=== PATIENT | female | born 1955 | race Two or more races ===

== ENCOUNTER 2019-01-12 10:37 | Inpatient (IN) | payer MEDICAID, OTHER ==
[~2019-01-12] VITALS: Ht 162.6 cm; Wt 81.1 kg
[2019-01-12 11:49] LABS: Basophils # (auto) 0 uL; Basophils % (auto) 0.7 % (0.0-2.0); Eosinophils # (auto) 0.2 uL; Eosinophils % (auto) 3.9 % (0.0-7.0); Hematocrit 29.7 % (36.0-46.0); Hemoglobin 9.9 g/dL (12.2-16.2); Lymphocytes # (auto) 0.9 uL; Lymphocytes % (auto) 20.5 % (10.0-50.0); Mean Corpuscular Hemoglobin 29.8 pg (28.0-32.0); Mean Corpuscular Hgb Conc. 33.3 g/dL (32.0-36.0); Mean Corpuscular Volume 89.7 fL (80.0-100.0); Monocytes # (auto) 0.3 uL; Monocytes % (auto) 7.8 % (0.0-12.0); Neutrophils % (auto) 67.1 % (37.0-80.0); Platelet Count (auto) 149 10^3/uL (140-450); Red Blood Cells 3.32 10^6/uL (4.0-5.20); White Blood Cell 4.5 10^3/uL (4.4-10.8)
[2019-01-12 12:21] LABS: Alanine Aminotransferase 79 U/L (13-56); Albumin 3.4 g/dL (3.4-5.0); Alkaline Phosphatase 241 U/L (45-117); Anion Gap 9 (5-15); Aspartate Aminotransferase 49 U/L (15-37); Bilirubin, Total 0.3 mg/dL (0.2-1.0); Blood Urea Nitrogen 74 mg/dL (7-18); Calcium 8.6 mg/dL (8.5-10.1); Carbon Dioxide 20 mmol/L (21-32); Chloride 108 mmol/L (98-107); GFR African American 14 mL/min; GFR Non-African American 12 mL/min; Glucose 243 mg/dL (74-106); Potassium 4.8 mmol/L (3.5-5.1); Sodium 137 mmol/L (136-145); Total Protein 7.2 g/dL (6.4-8.2)
[2019-01-12] MEDS ORDERED: TIMO0.5S67 EACHEYE (12:58)
[2019-01-12] MEDS ORDERED: CARV12.544 PO (12:58)
[2019-01-12] MEDS ORDERED: DORZ2SOL17 OP (12:58)
[2019-01-12] MEDS ORDERED: ASPI-404 PO (12:58)
[2019-01-12] MEDS ORDERED: ATOR20TA50 PO (12:58)
[2019-01-12] MEDS ORDERED: LACTULOSE 20Gm/30ML SOLN PO PRN (14:45)
[2019-01-12] MEDS ORDERED: traMADol HCL 50 MG TAB PO PRN (14:45)
[2019-01-12] MEDS ORDERED: TEMAZEPAM 15 MG CAP PO PRN (14:45)
[2019-01-12] MEDS ORDERED: PROMETHAZINE HCL 25 MG/ML 1ML IV PRN (14:45)
[2019-01-12] MEDS ORDERED: ACETAMINOPHEN 500 MG TAB PO PRN (14:45)
[2019-01-12] MEDS ORDERED: DEXTROSE (50%) 50ML SYRG IV PRN (14:45)
[2019-01-12] MEDS ORDERED: MORPHINE SULF INJ 2 MG/ML SYRINGE 1ML IV PRN (14:45)
[2019-01-12] MEDS ORDERED: NITROGLYCERIN 0.4 MG SL TAB SL PRN (14:45)
[2019-01-12 14:54] LABS: Urine Bacteria FEW /hpf (None Seen); Urine Blood Negative /uL (Negative); Urine Hyaline Cast FEW /lpf (0 - 2); Urine Specific Gravity 1.008 (1.001-1.035); Urine WBC 25 /hpf (0 - 5)
[2019-01-12] MEDS ORDERED: ENOXAPARIN SOD 100 MG/1 ML SYRINGE SC ONE (15:24)
[2019-01-12] MEDS ORDERED: ENOXAPARIN SOD 80 MG/0.8ML SYRINGE SC ONE (15:30)
[2019-01-12] MEDS ORDERED: cefTRIAXone 1GM/50ML D5W 50 ML IV ONE ×2 (15:30→15:49)
[2019-01-12 16:50] VITALS: BP 166/83
--- NOTE | 2019-01-12 16:50 | NUR ---
RECEIVED PATIENT FROM THE ER BY THE [facility], A/O TIMES 4, O2 BY R/A, STATES SHE CAN USE THE BEDPAN, REFUSES THE KHALIL, STATES SHE IS BLIND, SALINE LOCK 20G TO THE LEFT HAND, DENIES PAIN AND SOB AT THIS TIME, VS [id number] 97%,
[2019-01-12] MEDS: InsuLIN REG 1unit/0.01ml Soln (100units/ml) SC SCH ×2 (17:00→22:00)
[2019-01-12] MEDS: ACCU-CHEK COMFORT CURVE STRIP VI SCH ×2 (17:00→22:00)
--- NOTE | 2019-01-12 17:37 | NUR ---
BS 122 NO INSULIN NEEDED, SITTING UP IN BED WITH EYES CLOSED FAMILY AT THE BEDSIDE, INSTRUCTED ON THE P&P OF THE [facility] VERBALIZED UNDERSTANDING
[2019-01-12] MEDS: GENTAMICIN OPTH sol 0.3% 5ml LEFTEYE SCH ×2 (18:00→22:00)
--- NOTE | 2019-01-12 18:30 | NUR ---
PATIENT BEING FEED HER DINNER, BY THE FAMILY AT THIS TIME, O2 BY R/A, NO CHANGE SINCE COMING TO THE UNIT, WILL CONTINUE TO MONITOR AND GIVE REPORT TO THE NEXT SHIFT
[2019-01-12] MEDS: LABETALOL HCL 5 MG/ML ML 20ML VIAL IV PRN (18:43)
--- NOTE | 2019-01-12 18:43 | NUR ---
MEDICATED WITH LABETALOL FOR B/P OF /, TROP BEING DRAWN
--- NOTE | 2019-01-12 19:09 | NUR ---
B/P 157/79, DENIES PAIN
[2019-01-12 20:00] VITALS: BP 155/85
[2019-01-12] MEDS: DORZOLAMIDE HCL 2% OPTH(EYE) SOL 10ML OP SCH (22:00)
[2019-01-12] MEDS: CARVEDILOL 12.5 MG TAB PO SCH (23:38)
[2019-01-13] VITALS: BP 143/77
[2019-01-13] MEDS: GENTAMICIN OPTH sol 0.3% 5ml LEFTEYE SCH ×6 (02:00→23:00)
[2019-01-13 04:00] VITALS: BP 147/87
[2019-01-13 06:21] LABS: Albumin 3.3 g/dL (3.4-5.0); BUN/Creatinine Ratio 19.3; Bilirubin, Total 0.3 mg/dL (0.2-1.0); Calcium 8.6 mg/dL (8.5-10.1); Potassium 4.3 mmol/L (3.5-5.1); Total Protein 6.7 g/dL (6.4-8.2)
[2019-01-13] MEDS: ACCU-CHEK COMFORT CURVE STRIP VI SCH ×4 (06:31→22:00)
[2019-01-13] MEDS: InsuLIN REG 1unit/0.01ml Soln (100units/ml) SC SCH ×4 (06:31→23:01)
--- NOTE | 2019-01-13 07:00 | NUR ---
Pt has remained stable this shift. Daughter has come in a few times to check on her mother. At 0530 daughter bathed mother and did her morning care for comfort of her mother instead of staff. Report given, care endorsed.
--- NOTE | 2019-01-13 07:30 | NUR ---
RECEIVED PATIENT SITTING UP IN THE BED, PATIENT IS BLIND BUT A/O TIMES 4, WHEN I CALLED HE NAME, SALINE LOCK TO THE LEFT HAND FLUSHED AND PATENT, ABLE TO GET UP TO THE BSC WITH MINIMAL HELP HE SAYS, O2 BY R/A, DENIES PAIN
[2019-01-13 08:00] VITALS: BP 163/93
[2019-01-13] MEDS: TIMOLOL MAL 0.5% OPTH(EYE) SOL 5ML EACHEYE SCH (08:04)
--- NOTE | 2019-01-13 08:30 | NUR ---
SITTING UP IN BED EATING HER BREAKFAST, NO COMPLAINTS
[2019-01-13] MEDS: cefTRIAXone 1GM/50ML D5W 50 ML IV SCH (08:49)
--- NOTE | 2019-01-13 09:00 | NUR ---
NO COMPLAINTS OF PAIN, SITTING UP IN THE BED,
[2019-01-13] MEDS ORDERED: ASPirin 81 mg TAB PO SCH (10:00)
[2019-01-13] MEDS ORDERED: ENOXAPARIN SOD 30 MG/0.3 ML SYRINGE SC SCH (10:00)
[2019-01-13] MEDS ORDERED: FUROSEMIDE 40 MG/4 ML VIAL IV SCH (10:00)
--- NOTE | 2019-01-13 10:00 | NUR ---
EXPLAIN MEDICATIONS TO THE PATIENT AND THE DAUGHTER REGARDING THE DOSAGE, USAGE AND THE SIDE EFFECTS, VERBALIZED THE THEY UNDERSTOOD AND MEDS GIVEN ORDERED
[2019-01-13] MEDS: PANTOPRAZOLE 40 MG TAB PO SCH (10:07)
[2019-01-13] MEDS: ASPirin-EC 81 mg tab PO SCH (10:07)
[2019-01-13] MEDS: ATORVASTATIN 20 MG TAB PO SCH (10:07)
[2019-01-13] MEDS: ENOXAPARIN SOD 30 MG/0.3 ML SYRINGE SC SCH (10:08)
[2019-01-13] MEDS: CARVEDILOL 12.5 MG TAB PO SCH ×3 (10:09→23:05)
[2019-01-13] MEDS: DORZOLAMIDE HCL 2% OPTH(EYE) SOL 10ML OP SCH ×2 (10:18→23:00)
--- NOTE | 2019-01-13 11:30 | NUR ---
PATIENT SITTING UP IN THE BED WITH HER EYES CLOSED AND COVERS OVER HER HEAD STATES SHE IS DOING OKAY
[2019-01-13] MEDS: LABETALOL HCL 5 MG/ML ML 20ML VIAL IV PRN (12:23)
--- NOTE | 2019-01-13 12:30 | NUR ---
PATIENT ATE ONLY 50% OF HIS LUNCH
--- NOTE | 2019-01-13 13:45 | NUR ---
PATIENT GETS UP TO THE BSC WITH MINIMAL HELP
--- NOTE | 2019-01-13 14:45 | NUR ---
DR RANGEL INTO SEE THE PATIENT AND STATED TO TRANSFER TO TELE
[2019-01-13] MEDS ORDERED: traMADol HCL 50 MG TAB PO PRN (15:15)
--- NOTE | 2019-01-13 15:15 | NUR ---
CAROTID BEING DONE
--- NOTE | 2019-01-13 15:39 | NUR ---
JAKOB FROM RADIOLOGY HERE TO TALK TO THE PATIENT ABOUT HAVING AN MRI OF THE BRAIN, BUT THE PATIENT HAS A PACEMAKER AND THE FAMILY NEEDS TO BRING IN HER CARD TO SEE IF IT IS CAPABLE
--- NOTE | 2019-01-13 16:00 | NUR ---
ECHO BEING DONE
--- NOTE | 2019-01-13 17:00 | NUR ---
NO CHANGE IN CONDITION , FAMILY AT THE BED SIDE AND PATIENT EYES CLOSED BUT LISTENING TO THE TV
--- NOTE | 2019-01-13 18:00 | NUR ---
PATIENT SITTING UP IN BED, TALKING TO THE FAMILY , NO COMPLAINTS OF PAIN
--- NOTE | 2019-01-13 18:30 | NUR ---
SITTING UP IN THE BED, ATE ONLY A SMALL AMOUNT OF DINNER, STATES SHE IS HOT AND THE TEMP WAS DECREASED IN THE ROOM, CHECKED TEMP 99, FAMILY AT THE BEDSIDE, SALINE LOCK TO THE LEFT HAND 20G FLUSHED AND PATENT, GETS UP AND USES THE BSC, NO COMPLAINTS OF PAIN WHEN ASK, O2 BY R/A, A/O TIMES 4, WILL CONTINUE TO MONITOR AND GIVE REPORT TO THE NEXT SHIFT
[2019-01-13 20:00] VITALS: BP 110/64
[2019-01-13] MEDS ORDERED: NIFEdipine ER 30 MG TAB PO SCH (22:00)
[2019-01-14] VITALS: BP 175/100
[2019-01-14] MEDS: GENTAMICIN OPTH sol 0.3% 5ml LEFTEYE SCH ×4 (02:00→14:00)
[2019-01-14 04:18] VITALS: BP 96/54
[2019-01-14] MEDS: TIMOLOL MAL 0.5% OPTH(EYE) SOL 5ML EACHEYE SCH (06:30)
[2019-01-14] MEDS: InsuLIN REG 1unit/0.01ml Soln (100units/ml) SC SCH ×2 (06:30→12:04)
--- NOTE | 2019-01-14 06:30 | NUR ---
Received pt to room 245A via w/c with two [facility] personnel accompanying. A&Ox4. Skin wm and dry with normal coloring. Pt denies pain. Sitting straight up in bed with grown dtr sitting on foot of bed. Bed in lowest position; locked. Eye meds placed in pt's med. cassette for pyxis. Will endorse to day shift RN.
[2019-01-14] MEDS: ACCU-CHEK COMFORT CURVE STRIP VI SCH ×2 (06:31→11:30)
--- NOTE | 2019-01-14 06:34 | NUR ---
Pt stable transferred out to [address] Wheelchair with [facility]. No S/S of distress. Daughter with her for transfer. Report given to Monae TSAI, care endorsed.
[2019-01-14 07:03] LABS: Anion Gap 10 (5-15); BUN/Creatinine Ratio 18.1; Blood Urea Nitrogen 69 mg/dL (7-18); Carbon Dioxide 21 mmol/L (21-32); Chloride 111 mmol/L (98-107); GFR African American 15 mL/min; GFR Non-African American 13 mL/min; Glucose 125 mg/dL (74-106); Potassium 4.6 mmol/L (3.5-5.1); Sodium 142 mmol/L (136-145)
[2019-01-14 07:04] LABS: Calcium 8.7 mg/dL (8.5-10.1)
--- NOTE | 2019-01-14 07:16 | NUR ---
Opening Shift Note: Assumed care of patient, awake and alert. No S/S of distress/SOB or pain. Family at bedside. Bed in lowest locked position, side rails up x 2, call light within reach. Patient instructed on POC and to call for assist PRN, will continue to monitor for changes Q1hr and PRN.
[2019-01-14] MEDS: cefTRIAXone 1GM/50ML D5W 50 ML IV SCH (09:22)
[2019-01-14 09:24] VITALS: BP 99/52
[2019-01-14] MEDS: PANTOPRAZOLE 40 MG TAB PO SCH (09:52)
[2019-01-14] MEDS: ASPirin-EC 81 mg tab PO SCH (09:52)
[2019-01-14] MEDS: ATORVASTATIN 20 MG TAB PO SCH (09:52)
[2019-01-14] MEDS: DORZOLAMIDE HCL 2% OPTH(EYE) SOL 10ML OP SCH (09:53)
[2019-01-14] MEDS: ENOXAPARIN SOD 30 MG/0.3 ML SYRINGE SC SCH (09:54)
[2019-01-14] MEDS: CARVEDILOL 12.5 MG TAB PO SCH (10:00)
--- NOTE | 2019-01-14 11:27 | NUR ---
Dr. Garcia at bedside. Discussed with patient and family the POC. Patient verbally agrees. Will continue to monitor.
--- NOTE | 2019-01-14 11:47 | NUR ---
Dr. Garcia paged. New medications ordered for discharge.
[2019-01-14] MEDS ORDERED: NIFEdipine ER 30 MG TAB PO SCH (12:00)
[2019-01-14 12:53] VITALS: BP 111/60
--- NOTE | 2019-01-14 13:59 | NUR ---
Family at bedside. Concerned about pending discharge at patient not being "100% her normal self." Family educated on doctors discharge order. Dr Jose sanchez.
--- NOTE | 2019-01-14 14:35 | NUR ---
Dr. Garcia called back. New orders placed.
--- NOTE | 2019-01-14 15:10 | NUR ---
Patient off unit.
--- NOTE | 2019-01-14 15:45 | NUR ---
Radiologist called. Report from CT available.
--- NOTE | 2019-01-14 15:59 | NUR ---
Family made aware of Dr. Garcia orders for discharge. Family still refusing discharge at this time.
--- NOTE | 2019-01-14 16:15 | NUR ---
Dr. Garcia called back. Patient is still stable for discharge.
[2019-01-14 16:37] VITALS: BP 144/82
[2019-01-14 16:42] VITALS: BP 118/65
--- NOTE | 2019-01-14 16:45 | NUR ---
Patient and family agree to discharge.
--- NOTE | 2019-01-14 17:16 | NUR ---
IV removal: IV DC'd with clean sterile technique, catheter fully intact. Pressure dressing applied to site. Patient tolerated well.
== END 2019-01-14 19:18 | disposition home or self-care (01) | DRG 199 ==
LOC: ER 10:41 → TELE 10:42 → DOU IN ICU 16:53 → TELE-EAST 01-14 06:37
PROVIDERS: ADMIT Internal Medicine; ATTEND Internal Medicine
DX: I16.0 Hypertensive urgency (principal); E11.21 Type 2 diabetes mellitus with diabetic nephropathy; E11.40 Type 2 diabetes mellitus with diabetic neuropathy, unspecified; N39.0 Urinary tract infection, site not specified; I13.2 Hypertensive heart and chronic kidney disease with heart failure and with stage 5 chronic kidney disease, or end stage renal disease; E11.319 Type 2 diabetes mellitus with unspecified diabetic retinopathy without macular edema; E11.22 Type 2 diabetes mellitus with diabetic chronic kidney disease; I25.10 Atherosclerotic heart disease of native coronary artery without angina pectoris; D64.9 Anemia, unspecified; E78.5 Hyperlipidemia, unspecified; H10.9 Unspecified conjunctivitis; R56.9 Unspecified convulsions; H54.8 Legal blindness, as defined in USA; G47.00 Insomnia, unspecified; N18.6 End stage renal disease; E11.65 Type 2 diabetes mellitus with hyperglycemia; I50.9 Heart failure, unspecified; Z95.1 Presence of aortocoronary bypass graft; Z95.0 Presence of cardiac pacemaker; Z83.3 Family history of diabetes mellitus; Z79.899 Other long term (current) drug therapy; I50.42 Chronic combined systolic (congestive) and diastolic (congestive) heart failure
CPT/HCPCS: 36415; 70450; 71046; 80048; 80053; 81001; 82550; 82962; 83036; 83735; 83880; 84484; 85025; 87086; 87088; 87186; 93005; 93306; 93886; 96365; 96372; G0378; J0696; J1815

== ENCOUNTER 2021-02-08 04:57 | Inpatient (IN) | payer MEDICAID ==
[~2021-02-08] VITALS: Ht 162.6 cm; Wt 81.8 kg
[~2021-02-08 04:57] MED LIST: ASPI-543 PO; ATOR20TA50 PO; CARV12.544 PO; DORZ2SOL17 EACHEYE; TIMO0.5S28 EACHEYE
[2021-02-08 07:35] LABS: Basophils # (auto) 0 10 ^3/uL (0-0.2); Eosinophils # (auto) 0 10 ^3/uL (0-0.8); Eosinophils % (auto) 0.9 % (0.0-7.0); Lymphocytes # (auto) 0.6 10 ^3/uL (0.4-5.4); Monocytes # (auto) 0.5 10 ^3/uL (0-1.3)
[2021-02-08 07:37] LABS: Basophils % (auto) 0.5 % (0.0-2.0); Hematocrit 22.3 % (36.0-46.0); Hemoglobin 7.3 g/dL (12.2-16.2); Lymphocytes % (auto) 11.5 % (10.0-50.0); Mean Corpuscular Hemoglobin 30.9 pg (28.0-32.0); Mean Corpuscular Hgb Conc. 32.6 g/dL (32.0-36.0); Mean Corpuscular Volume 94.9 fL (80.0-100.0); Monocytes % (auto) 10.2 % (0.0-12.0); Neutrophils # (auto) 3.9 10 ^3/uL (1.6-8.6); Neutrophils % (auto) 76.9 % (37.0-80.0); Nucleated Red Blood Cells % 0.1 %; Red Blood Cells 2.35 10^6/uL (4.0-5.20); Red Cell Distribution Width 17.9 % (11.8-14.3)
[2021-02-08 07:43] LABS: Albumin 3.1 g/dL (3.4-5.0); Calcium 7.6 mg/dL (8.5-10.1)
[2021-02-08 07:48] LABS: BUN/Creatinine Ratio 7.9; Bilirubin, Total 0.5 mg/dL (0.2-1.0); Total Protein 7.6 g/dL (6.4-8.2)
[2021-02-08] MEDS ORDERED: SODIUM BICARBONATE 8.4 % INJ 50ML VIAL IV ONE ×2 (09:15→13:00)
[2021-02-08] MEDS ORDERED: D5W 5% 250 ML IV ONE (09:15)
[2021-02-08] MEDS ORDERED: InsuLIN REG 1unit/0.01ml Soln (100units/ml) IV ONE (09:15)
[2021-02-08] MEDS ORDERED: SODIUM CHLORIDE 0.9% 1,000 ML IV ONE ×2 (09:15→18:00)
[2021-02-08] MEDS ORDERED: CALCIUM CHL 100MG/ML 1,000 MG in D5W 5% 100 ML IV ONE (09:15)
[2021-02-08] MEDS ORDERED: SODIUM ZIRCONIUM CYCL 10 GM PAK PO ONE (12:15)
[2021-02-08] MEDS ORDERED: DOCUSATE SOD 100 MG CAP PO PRN (12:15)
[2021-02-08] MEDS ORDERED: MORPHINE SULFATE INJECTION 2 MG/ML SYRG IV PRN (12:15)
[2021-02-08] MEDS ORDERED: NITROGLYCERIN 0.4 MG SL TAB SL PRN (12:15)
[2021-02-08] MEDS ORDERED: ACETAMINOPHEN 325 MG TAB PO PRN (12:15)
[2021-02-08] MEDS ORDERED: ATORVASTATIN 20 MG TAB PO ONE (12:30)
[2021-02-08] MEDS ORDERED: DEXTROSE (50%) 50ML SYRG IV PRN (12:30)
[2021-02-08] MEDS ORDERED: ALBUTEROL SULF 2.5 MG/0.5ML(0.5%) NEB SOLN NEB ONE (13:00)
[2021-02-08] MEDS ORDERED: SODIUM BICARBONATE 50ML VIAL 150 ML in D5W 5% 1,000 ML IV ONE (13:00)
[2021-02-08] MEDS ORDERED: CALCIUM GLUC 1,000mg/50ml-NS 50 ML IV ONE (13:00)
[2021-02-08] MEDS: CARVEDILOL 3.125 MG TAB PO SCH ×2 (13:34→22:51)
[2021-02-08] MEDS: ASPirin 81 mg TAB PO SCH (13:35)
[2021-02-08] MEDS ORDERED: SODIUM BICARBONATE 8.4% INJ 50ML SYRINGE ONE (13:41)
[2021-02-08] MEDS ORDERED: FUROSEMIDE 100 MG/10ML VIAL IV ONE (13:45)
[2021-02-08 14:26] LABS: Urine Bacteria MANY /hpf (None Seen); Urine Blood 2+ /uL (Negative); Urine Specific Gravity 1.014 (1.001-1.035); Urine WBC 400 /hpf (0 - 5)
[2021-02-08 15:32] LABS: Cholesterol 118 mg/dL (< 200)
[2021-02-08 15:36] LABS: HDL Cholesterol 47 mg/dL (40-59); LDL Cholesterol 38 mg/dL (< 100); Triglycerides 128 mg/dL (< 150)
[2021-02-08] MEDS: SODIUM ZIRCONIUM CYCL 10 GM PAK PO SCH ×2 (16:00→22:51)
[2021-02-08 16:55] LABS: BUN/Creatinine Ratio 8.1; Calcium 8.3 mg/dL (8.5-10.1); Potassium 4.8 mmol/L (3.5-5.1)
[2021-02-08] MEDS: InsuLIN REG 1unit/0.01ml Soln (100units/ml) SC SCH ×2 (17:00→22:51)
[2021-02-08] MEDS: ACCU-CHEK COMFORT CURVE STRIP VI SCH ×2 (17:16→22:51)
[2021-02-08] MEDS: CALCIUM ACETATE 667 MG CAP PO SCH (18:29)
[2021-02-08] MEDS ORDERED: HEPARIN SODIUM (PORCINE) 5000 UNITS/ML 1ML VIAL IV SCH (22:00)
[2021-02-09] MEDS ORDERED: ONDANSETRON HCL 4 MG/2 ML VIAL IV PRN (01:45)
[2021-02-09] MEDS: SODIUM ZIRCONIUM CYCL 10 GM PAK PO SCH ×3 (06:45→21:31)
[2021-02-09] MEDS ORDERED: SODIUM CHL 0.9% 1000 ML BAG XX ONE (07:00)
[2021-02-09] MEDS: ACCU-CHEK COMFORT CURVE STRIP VI SCH ×4 (07:49→21:32)
[2021-02-09] MEDS: InsuLIN REG 1unit/0.01ml Soln (100units/ml) SC SCH ×4 (07:50→21:31)
[2021-02-09 08:12] LABS: Basophils # (auto) 0 10 ^3/uL (0-0.2); Eosinophils # (auto) 0 10 ^3/uL (0-0.8); Mean Corpuscular Volume 96.5 fL (80.0-100.0); Monocytes # (auto) 0.4 10 ^3/uL (0-1.3); White Blood Cell 3.7 10^3/uL (4.4-10.8)
[2021-02-09 08:14] LABS: Basophils % (auto) 0.5 % (0.0-2.0); Eosinophils % (auto) 0.8 % (0.0-7.0); Hematocrit 19.9 % (36.0-46.0); Lymphocytes # (auto) 0.5 10 ^3/uL (0.4-5.4); Lymphocytes % (auto) 12.7 % (10.0-50.0); Mean Corpuscular Hemoglobin 30.2 pg (28.0-32.0); Mean Corpuscular Hgb Conc. 31.3 g/dL (32.0-36.0); Monocytes % (auto) 10.6 % (0.0-12.0); Neutrophils # (auto) 2.8 10 ^3/uL (1.6-8.6); Neutrophils % (auto) 75.4 % (37.0-80.0); Nucleated Red Blood Cells % 0.9 %; Red Blood Cells 2.07 10^6/uL (4.0-5.20)
[2021-02-09 08:19] LABS: Hemoglobin 6.2 g/dL (12.2-16.2)
[2021-02-09 08:32] LABS: % Iron Saturation 104.5 % (15-50)
[2021-02-09 08:47] LABS: Potassium 5.1 mmol/L (3.5-5.1)
[2021-02-09 08:53] LABS: BUN/Creatinine Ratio 8.1; Calcium 7.6 mg/dL (8.5-10.1)
[2021-02-09] MEDS: CALCIUM ACETATE 667 MG CAP PO SCH ×3 (09:47→18:41)
[2021-02-09] MEDS: HYDROcodone-ACET 5/325MG TAB PO PRN ×2 (09:49→21:32)
[2021-02-09] MEDS: PANTOPRAZOLE 40 MG TAB PO SCH (10:43)
[2021-02-09] MEDS: ASPirin 81 mg TAB PO SCH (10:43)
[2021-02-09] MEDS: CARVEDILOL 3.125 MG TAB PO SCH ×2 (10:43→21:31)
[2021-02-09] MEDS: SODIUM BICARBONATE 50ML VIAL 50 ML in SOD CHL 0.45% 1,000 ML IV SCH (11:00)
[2021-02-09] MEDS: HEPARIN SODIUM (PORCINE) 5000 UNITS/ML 1ML VIAL SC SCH ×2 (11:00→21:33)
[2021-02-09 14:04] LABS: Hepatitis A Ab IgM Negative
[2021-02-09 14:16] LABS: Hepatitis B Core IgM Negative
[2021-02-09 14:22] LABS: Hepatitis C Antibody Negative (Negative)
[2021-02-09] MEDS ORDERED: CARV25TA55 PO (14:28)
[2021-02-09] MEDS ORDERED: PRED1SUS31 EACHEYE (14:39)
[2021-02-09] MEDS ORDERED: BRIM EACHEYE (14:39)
[2021-02-09] MEDS ORDERED: FURO40TA4 PO (14:43)
[2021-02-09 16:39] LABS: Basophils # (auto) 0 10 ^3/uL (0-0.2); Eosinophils # (auto) 0.1 10 ^3/uL (0-0.8); Hematocrit 24.1 % (36.0-46.0); Hemoglobin 7.9 g/dL (12.2-16.2); Lymphocytes # (auto) 0.5 10 ^3/uL (0.4-5.4); Monocytes # (auto) 0.5 10 ^3/uL (0-1.3); Monocytes % (auto) 9.1 % (0.0-12.0); Red Cell Distribution Width 16.1 % (11.8-14.3); White Blood Cell 5.1 10^3/uL (4.4-10.8)
[2021-02-09 16:41] LABS: Basophils % (auto) 0.3 % (0.0-2.0); Eosinophils % (auto) 1.3 % (0.0-7.0); Lymphocytes % (auto) 9.3 % (10.0-50.0); Mean Corpuscular Hemoglobin 30.3 pg (28.0-32.0); Mean Corpuscular Volume 91.8 fL (80.0-100.0); Neutrophils # (auto) 4.1 10 ^3/uL (1.6-8.6); Nucleated Red Blood Cells % 2.3 %; Red Blood Cells 2.63 10^6/uL (4.0-5.20)
[2021-02-09 16:57] LABS: Calcium 7.9 mg/dL (8.5-10.1); Potassium 3.9 mmol/L (3.5-5.1)
[2021-02-09 16:59] LABS: BUN/Creatinine Ratio 8.1
[2021-02-09 22:00] VITALS: BP 131/63
[2021-02-09] MEDS ORDERED: ATORVASTATIN 20 MG TAB PO SCH (22:00)
[2021-02-09 22:08] VITALS: BP 132/70
[2021-02-10] VITALS (9 sets, daily range): BP systolic 96–137; BP diastolic 52–69
[2021-02-10] MEDS: SODIUM ZIRCONIUM CYCL 10 GM PAK PO SCH (05:32)
[2021-02-10] MEDS: ACCU-CHEK COMFORT CURVE STRIP VI SCH ×4 (06:11→21:54)
[2021-02-10] MEDS: InsuLIN REG 1unit/0.01ml Soln (100units/ml) SC SCH ×4 (06:11→22:00)
[2021-02-10] MEDS: CALCIUM ACETATE 667 MG CAP PO SCH ×3 (08:00→18:56)
[2021-02-10 09:18] LABS: Basophils # (auto) 0 10 ^3/uL (0-0.2); Eosinophils # (auto) 0.1 10 ^3/uL (0-0.8); Eosinophils % (auto) 1.6 % (0.0-7.0); Lymphocytes # (auto) 0.6 10 ^3/uL (0.4-5.4); Monocytes # (auto) 0.8 10 ^3/uL (0-1.3); Neutrophils # (auto) 3.2 10 ^3/uL (1.6-8.6)
[2021-02-10 09:23] LABS: Basophils % (auto) 0.5 % (0.0-2.0); Hematocrit 23.2 % (36.0-46.0); Lymphocytes % (auto) 12.8 % (10.0-50.0); Mean Corpuscular Hemoglobin 31.1 pg (28.0-32.0); Mean Corpuscular Hgb Conc. 34.5 g/dL (32.0-36.0); Mean Corpuscular Volume 90.2 fL (80.0-100.0); Monocytes % (auto) 16.4 % (0.0-12.0); Neutrophils % (auto) 68.7 % (37.0-80.0); Nucleated Red Blood Cells % 2.4 %; Red Blood Cells 2.58 10^6/uL (4.0-5.20); Red Cell Distribution Width 16.8 % (11.8-14.3); White Blood Cell 4.7 10^3/uL (4.4-10.8)
[2021-02-10] MEDS ORDERED: IODIXANOL 320MG/ML 100ML BTL IV ONE (09:54)
[2021-02-10] MEDS ORDERED: LIDOCAINE 2%HCL (LOCAL ANESTH.) INJ 20ML MDV ONE (09:54)
[2021-02-10] MEDS ORDERED: MIDAZOLAM HCL 2MG/2ML 2ml VIAL (1mg/ml) ONE (10:28)
[2021-02-10] MEDS ORDERED: fentaNYL CITRATE 100 MCG/2 ML VL ONE (10:28)
[2021-02-10] MEDS ORDERED: HEPARIN SODIUM (PORCINE) 5000 UNITS/ML 1ML VIAL ONE (11:01)
[2021-02-10 11:04] LABS: INR 1.21 (0.9-1.15); Partial Thromboplastin Time 29.4 sec (23.6-33.0)
[2021-02-10] MEDS: HEPARIN SODIUM (PORCINE) 5000 UNITS/ML 1ML VIAL SC SCH ×2 (13:00→21:44)
[2021-02-10] MEDS: ASPirin 81 mg TAB PO SCH (13:00)
[2021-02-10] MEDS: PANTOPRAZOLE 40 MG TAB PO SCH (13:00)
[2021-02-10 14:01] LABS: Calcium 7.3 mg/dL (8.5-10.1); Potassium 4.2 mmol/L (3.5-5.1)
[2021-02-10] MEDS: SODIUM BICARBONATE 50ML VIAL 50 ML in SOD CHL 0.45% 1,000 ML IV SCH ×3 (18:57)
[2021-02-10] MEDS: HYDROcodone-ACET 5/325MG TAB PO PRN (21:44)
[2021-02-11] MEDS: SODIUM BICARBONATE 50ML VIAL 50 ML in SOD CHL 0.45% 1,000 ML IV SCH (04:00)
[2021-02-11 05:00] VITALS: BP 126/67
[2021-02-11 06:13] LABS: Basophils # (auto) 0 10 ^3/uL (0-0.2); Eosinophils # (auto) 0.1 10 ^3/uL (0-0.8); Hemoglobin 8.2 g/dL (12.2-16.2); Lymphocytes # (auto) 0.8 10 ^3/uL (0.4-5.4); White Blood Cell 4.1 10^3/uL (4.4-10.8)
[2021-02-11 06:16] LABS: Basophils % (auto) 0.8 % (0.0-2.0); Eosinophils % (auto) 2.1 % (0.0-7.0); Hematocrit 24.2 % (36.0-46.0); Mean Corpuscular Hemoglobin 30.3 pg (28.0-32.0); Mean Corpuscular Hgb Conc. 33.7 g/dL (32.0-36.0); Monocytes # (auto) 0.6 10 ^3/uL (0-1.3); Neutrophils # (auto) 2.6 10 ^3/uL (1.6-8.6); Neutrophils % (auto) 63.1 % (37.0-80.0); Nucleated Red Blood Cells % 2.6 %; Red Blood Cells 2.69 10^6/uL (4.0-5.20); Red Cell Distribution Width 16.5 % (11.8-14.3)
[2021-02-11 06:24] LABS: Potassium 3.9 mmol/L (3.5-5.1)
[2021-02-11 06:28] LABS: BUN/Creatinine Ratio 7.9; Calcium 7.1 mg/dL (8.5-10.1)
[2021-02-11] MEDS: InsuLIN REG 1unit/0.01ml Soln (100units/ml) SC SCH ×2 (06:58→12:01)
[2021-02-11] MEDS: ACCU-CHEK COMFORT CURVE STRIP VI SCH ×2 (06:58→12:00)
[2021-02-11] MEDS ORDERED: SODIUM CHL 0.9% 1000 ML BAG XX ONE (07:00)
[2021-02-11] MEDS: CALCIUM ACETATE 667 MG CAP PO SCH ×2 (08:39→12:02)
[2021-02-11 08:48] VITALS: BP 125/64
[2021-02-11] MEDS: PANTOPRAZOLE 40 MG TAB PO SCH (11:59)
[2021-02-11] MEDS: ASPirin 81 mg TAB PO SCH (11:59)
[2021-02-11] MEDS: HEPARIN SODIUM (PORCINE) 5000 UNITS/ML 1ML VIAL SC SCH (12:00)
[2021-02-11] MEDS ORDERED: SEVELAMER 800 MG TAB PO SCH (12:00)
[2021-02-11 13:00] VITALS: BP 138/72
[2021-02-11 13:29] VITALS: BP 138/72
[2021-02-11] MEDS ORDERED: SEVE800T PO (15:08)
[2021-02-11 16:45] VITALS: BP 142/63
[2021-02-11] MEDS ORDERED: EPOETIN ALFA-EPBX 10,000 UNIT/1ML VIAL SC ONE (21:00)
== END 2021-02-11 18:00 | disposition home or self-care (01) | DRG 133 ==
LOC: ER 04:57 → TELE 12:11 → TELE-CENTR 02-09 20:09
PROVIDERS: ADMIT Internal Medicine; ATTEND Internal Medicine
PROC: 02HV33Z Insertion of Infusion Device into Superior Vena Cava, Percutaneous Approach (ICD-10-PCS; 2021-02-08)
PROC: B548ZZA Ultrasonography of Superior Vena Cava, Guidance (ICD-10-PCS; 2021-02-08)
PROC: 5A1D70Z Performance of Urinary Filtration, Intermittent, Less than 6 Hours Per Day (ICD-10-PCS; 2021-02-09)
PROC: 30233N1 Transfusion of Nonautologous Red Blood Cells into Peripheral Vein, Percutaneous Approach (ICD-10-PCS; 2021-02-09)
PROC: 0JH63XZ Insertion of Tunneled Vascular Access Device into Chest Subcutaneous Tissue and Fascia, Percutaneous Approach (ICD-10-PCS; principal; 2021-02-10)
PROC: 02H633Z Insertion of Infusion Device into Right Atrium, Percutaneous Approach (ICD-10-PCS; 2021-02-10)
PROC: B5181ZA Fluoroscopy of Superior Vena Cava using Low Osmolar Contrast, Guidance (ICD-10-PCS; 2021-02-10)
PROC: B548ZZA Ultrasonography of Superior Vena Cava, Guidance (ICD-10-PCS; 2021-02-10)
PROC: 5A1D70Z Performance of Urinary Filtration, Intermittent, Less than 6 Hours Per Day (ICD-10-PCS; 2021-02-11)
DX: J96.00 Acute respiratory failure, unspecified whether with hypoxia or hypercapnia (principal); I21.4 Non-ST elevation (NSTEMI) myocardial infarction; I13.2 Hypertensive heart and chronic kidney disease with heart failure and with stage 5 chronic kidney disease, or end stage renal disease; D69.6 Thrombocytopenia, unspecified; N17.9 Acute kidney failure, unspecified; E44.1 Mild protein-calorie malnutrition; I42.9 Cardiomyopathy, unspecified; N18.6 End stage renal disease; D63.8 Anemia in other chronic diseases classified elsewhere; E11.319 Type 2 diabetes mellitus with unspecified diabetic retinopathy without macular edema; E11.22 Type 2 diabetes mellitus with diabetic chronic kidney disease; I25.10 Atherosclerotic heart disease of native coronary artery without angina pectoris; I50.9 Heart failure, unspecified; E78.5 Hyperlipidemia, unspecified; E87.5 Hyperkalemia; H54.7 Unspecified visual loss; H91.90 Unspecified hearing loss, unspecified ear; Z91.15 Patient's noncompliance with renal dialysis; Z91.19 Patient's noncompliance with other medical treatment and regimen; Z95.0 Presence of cardiac pacemaker; Z95.1 Presence of aortocoronary bypass graft; Z79.4 Long term (current) use of insulin; Z83.3 Family history of diabetes mellitus; Z99.2 Dependence on renal dialysis; Z68.31 Body mass index [BMI] 31.0-31.9, adult
CPT/HCPCS: 36415; 36558; 71045; 76775; 76937; 76942; 77001; 80048; 80053; 80061; 80074; 81001; 82962; 83540; 83550; 83880; 84100; 84484; 85025; 85610; 85730; 86850; 86900; 86901; 86920; 87426; 90935; 93005; 93306; 93971; 94644; 96361; 96365; 96375; 99152; 99291; G0378; J1642; J1815; J2250; J2405; J7060; Q9967

== ENCOUNTER 2021-05-11 17:17 | Emergency (ER) | payer MEDICAID ==
[~2021-05-11] VITALS: Ht 165.1 cm; Wt 67.1 kg
[~2021-05-11 17:17] MED LIST changes: -ATOR20TA50 PO; +BRIM EACHEYE; -CARV12.544 PO; +PRED1SUS31 EACHEYE; +SEVE800T PO; -TIMO0.5S28 EACHEYE
[2021-05-11 17:22] VITALS: BP 138/70
[2021-05-11 19:47] LABS: Basophils # (auto) 0.1 10 ^3/uL (0-0.2); Basophils % (auto) 1.7 % (0.0-2.0); Eosinophils # (auto) 0.1 10 ^3/uL (0-0.8); Eosinophils % (auto) 1.5 % (0.0-7.0); Hematocrit 33.6 % (36.0-46.0); Lymphocytes % (auto) 20.7 % (10.0-50.0); Mean Corpuscular Hemoglobin 30.9 pg (28.0-32.0); Mean Corpuscular Hgb Conc. 32.7 g/dL (32.0-36.0); Mean Corpuscular Volume 94.5 fL (80.0-100.0); Monocytes # (auto) 0.5 10 ^3/uL (0-1.3); Monocytes % (auto) 10.4 % (0.0-12.0); Neutrophils # (auto) 3.1 10 ^3/uL (1.6-8.6); Neutrophils % (auto) 65.7 % (37.0-80.0); Red Blood Cells 3.56 10^6/uL (4.0-5.20); Red Cell Distribution Width 15.3 % (11.8-14.3); White Blood Cell 4.7 10^3/uL (4.4-10.8)
[2021-05-11 20:05] LABS: Albumin 3.5 g/dL (3.4-5.0); Calcium 8.5 mg/dL (8.5-10.1); Potassium 3.9 mmol/L (3.5-5.1)
[2021-05-11 20:09] LABS: BUN/Creatinine Ratio 5.3; Bilirubin, Total 0.4 mg/dL (0.2-1.0); Total Protein 8.2 g/dL (6.4-8.2)
[2021-05-11] MEDS ORDERED: CEPH-509 PO (21:47)
== END 2021-05-11 22:05 | disposition home or self-care (01) ==
LOC: ER 17:17
DX: L97.819 Non-pressure chronic ulcer of other part of right lower leg with unspecified severity (principal); E11.22 Type 2 diabetes mellitus with diabetic chronic kidney disease; I13.2 Hypertensive heart and chronic kidney disease with heart failure and with stage 5 chronic kidney disease, or end stage renal disease; N18.6 End stage renal disease; I50.9 Heart failure, unspecified; E78.5 Hyperlipidemia, unspecified; Z99.2 Dependence on renal dialysis
CPT/HCPCS: 36415; 73590; 80053; 85025; 85652; 87040